=== PATIENT | female | born 1945 | race Caucasian/White ===

== ENCOUNTER 2024-08-25 15:35 | Inpatient (IN) | payer MEDICARE, SELFPAY ==
[2024-08-25] VITALS (22 sets, daily range): BP systolic 96–190; BP diastolic 51–93; PULSE 59–95; RESP 16–29; TEMP 36.9–37.1; O2SAT 92–97; BMI 32.3; BMI 33.6
--- NOTE | 2024-08-25 15:44 | XR_ITS ---
WS: [id number] XR chest 1V portable [id number] REASON FOR EXAM: chest pain FINDINGS: Moderate tortuosity and ectasia of the thoracic aorta. Mild cardiomegaly. Calcified granulomas disease bilaterally. No acute pulmonary parenchymal or pleural abnormality. Moderate degenerative spondylosis in the thoracic spine. Calcific left rotator cuff tendinosis. XR/XR chest 1V portable [id number] IMPRESSION: Mild cardiomegaly. No acute chest abnormality.
--- NOTE | 2024-08-25 15:44 | XR_ITS ---
WS: [id number] XR thoracic spine 3V* [id number] REASON FOR EXAM: back pain FINDINGS: No significant compression deformity or other focal vertebral body abnormality. Disc spaces minimally narrowed with mild to moderate vertebral body osteophytosis. XR/XR thoracic spine 3V* [id number] IMPRESSION: Mild to moderate degenerative spondylosis.
--- NOTE | 2024-08-25 15:45 | ED_ITS ---
Documented by User: SURYA Stoddard 08/26/24 09:12 HPI - Back Pain/Injury 2 General: Chief Complaint: Back Pain/Injury Stated Complaint: back pain Time Seen by Provider: 08/25/24 15:35 Source: patient and EMS Mode of arrival: EMS Limitations: no limitations History of Present Illness: Patient is a 78-year-old female presents to ED today via EMS for evaluation of back pain. She reportedly went to her primary care clinic for complaints of the back pain. They reportedly did an EKG and were concerned about a few areas of ST depression-no previous for comparisons. Patient states she is not having any chest pain. She states she has not been to the doctor since the . She tells me she has had lower neck/upper back pain between her shoulder blades for at least 6 months. 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 She states because of this she has a lot of neck and back pains with radiation into her arms. She states she recently changed chairs with different armrests and feels like made symptoms worse. She does not complain of a headache. No fevers. Again, back pain has been present intermittently over the past 6 months or so. Upon arrival to the emergency department today she states that most of her pain has abated and currently rating it at a 1/10. She was noted to be very hypertensive upon arrival. Patient states she does not check her blood pressure at home. Again she has not been to the doctor in many many years. MD elicited complaint: back pain Pertinent past history: prior back pain Onset (ago): month(s) Timing: intermittent Severity: mild Pain scale (0-10): 1 Similar Symptoms Previously: Yes Location: thoracic spine (lower neck/upper back) Radiation: other (bilateral arms) Exacerbating factors: other (certain movements and positions ) Associated symptoms: Deny abdominal pain, chills, dysuria, fatigue, fever(s) or syncope Work related injury: No Related Data Home Medications Medication Instructions Recorded Confirmed No Known Home Medications 08/26/24 08/26/24 Allergies Allergy/AdvReac Type Severity Reaction Status Date / Time Penicillins Allergy ALGY-Hives Verified 08/25/24 15:47 Review of Systems 2 Const: Denies: fever(s), chills, body aches, fatigue or malaise Eyes: Denies: change in vision, blurry vision, photophobia, floaters or seeing flashes Card: Denies: chest pain, palpitations, irregular heart rhythm, edema, swelling of feet/ankles, lightheadedness, syncope, pre-syncope, dyspnea on exertion, orthopnea, leg pain with exertion or acrocyanosis Resp: Denies: dyspnea, productive cough, non-productive cough, wheezing, stridor, pain on inspiration, change in phlegm color, hemoptysis or chest congestion GI: Denies: abdominal pain : Denies: flank pain or dysuria Musc: Reports: back pain; Denies: neck pain, extremity pain, extremity swelling, joint pain or joint swelling Skin/Breast: Denies: rash Neuro: Denies: headache(s), numbness in extremities, weakness in extremities or sensory changes Physical Exam 2 Const: COMMON NORMALS: no acute distress, average body habitus, patient oriented x3, no limitations, healthy appearing, alert and well nourished G ENERAL APPEARANCE: cooperative ORIENTATION/CONSCIOUSNESS: Yes awake, Yes oriented to person, Yes oriented to place and Yes oriented to time Eye: GENERAL EYE: appearance normal, both eyes and all related structures Neck/C-Spine: COMMON NORMALS: full ROM, no meningeal signs and no JVD G ENERAL: Yes normal visual inspection CERVICAL SPINE: Yes pain with cervical ROM, No Cervical spine tenderness, No step off deformity, Yes Paracervical muscle tenderness, No Paracervical spasm and No Trapezius muscle tenderness Chest: COMMONS NORMALS: normal inspection of the chest and normal palpation of entire chest wall Resp: COMMON NORMALS: normal respiratory effort and clear to auscultation bilaterally AUSCULTATION: clear to auscultation bilaterally Cardio: COMMON NORMALS: no JVD, regular rate and regular rhythm RATE: r egular rate RHYTHM: regular rhythm GI: COMMON NORMALS: Normal to inspection, nondistended, normoactive bowel sounds present, Soft to palpation and non-tender PALPATION: Yes Soft to palpation : COMMON NORMALS: Yes no CVA tenderness BLADDER/KIDNEY EXAM: Yes no CVA tenderness Back/Pelvis: COMMON NORMALS: no CVA tenderness, thoracic and lumbar spine normal to inspection, thoraco-lumbar ROM normal and straight leg raise negative bilaterally THORACIC SPINE/UPPER BACK: Yes paraspinal muscle tenderness L UMBAR SPINE/LOWER BACK: Yes normal to inspection, No lumbar spinal tenderness and No paraspinal muscle tenderness PELVIS: Yes buttocks normal Extremity: COMMON NORMALS: normal to inspection, full ROM, capillary refill normal, no joint enlargement, no clubbing, cyanosis or edema, no calf tenderness and no pedal edema GENERAL: Yes normal exam except as noted Neuro: YAEL COMA SCALE: document GCS findings Yael coma scale eye opening: Spontaneous Armstrong coma scale verbal response: Orientated Armstrong coma scale motor response: Obey commands Yael coma scale total score: 15 COMMON NORMALS: patient oriented x3, moves all extremities, no focal motor deficits, no sensory deficits noted and gait normal SENSORIUM/ORIENTATION: Yes alert, Yes oriented to person, Yes oriented to place and Yes oriented to time MENINGEAL SIGNS: Yes no meningeal signs Skin: COMMON NORMALS: no rashes or lesions noted GENERAL SKIN EXAM: no rashes or lesions noted Course 2 Vital Signs: Vital signs: Vital Signs Temperature 97.8 F 08/26/24 04:00 Pulse Rate 68 08/26/24 08:00 Respiratory Rate 26 H 08/26/24 08:00 Blood Pressure 128/66 08/26/24 08:00 Pulse Oximetry 95 08/26/24 08:00 Oxygen Delivery Me thod Room Air 08/26/24 06:00 MDM - Back Pain/Injury Labs 08/26/24 03:25 08/26/24 03:25 Radiology Impressions Chest X-Ray 08/25/24 15:44 IMPRESSION: Mild cardiomegaly. No acute chest abnormality. Thoracic Spine X-Ray 08/25/24 15:44 IMPRESSION: Mild to moderate degenerative spondylosis. Cervical Spine X-Ray 08/25/24 15:48 IMPRESSION: Mild changes of degenerative spondylosis as above. Bilateral calcified plaque carotid arteries. Chest CTA 08/25/24 17:26 IMPRESSION: 1. No evidence of pulmonary embolism. 2. No evidence of thoracic aortic aneurysm or dissection. 3. Stenosis of the left subclavian artery. Laboratory Results WBC 10.94 10^3/uL (3.29-11.43) 08/25/24 16:53 RBC 4.86 10^6/uL (3.85-5.65) 08/25/24 16:53 Hgb 15.70 g/dL (11.27-16.99) 08/25/24 16:53 Hct 47.5 % (36-47) H 08/25/24 16:53 MCV 97.7 fl (85-98) 08/25/24 16:53 MCH 32.3 pg (27-33) 08/25/24 16:53 MCHC 33.1 g/dL (30-55) 08/25/24 16:53 RDW 13.5 % (12.1-15.1) 08/25/24 16:53 Plt Count 261 10^3/cmm (157-399) 08/25/24 16:53 MPV 10.1 fL (7.4-10.4) 08/25/24 16:53 Neut % (Auto) 66.0 % 08/25/24 16:53 Lymph % (Auto) 26.5 % 08/25/24 16:53 [place] % (Auto) 6.4 % 08/25/24 16:53 Eos % (Auto) 0.4 % 08/25/24 16:53 Baso % (Auto) 0.5 % 08/25/24 16:53 Neut # (Auto) 7.22 10^3/uL (1.8-7.7) 08/25/24 16:53 Lymph # (Auto) 2.9 10^3/uL (0.8-4.8) 08/25/24 16:53 [place] # (Auto) 0.7 10^3/uL (0.2-0.9) 08/25/24 16:53 Eos # (Auto) 0.0 10^3/uL (0.0-0.8) 08/25/24 16:53 Baso # (Auto) 0.1 10^3/uL (0.0-0.1) 08/25/24 16:53 Nucleated RBC % (auto) 0 % 08/25/24 16:53 Nucleated RBCs # 0.0 /100WBC 08/25/24 16:53 Sodium 139 mmol/L (136-145) 08/25/24 16:53 Potassium 3.7 mmol/L (3.5-5.1) 08/25/24 16:53 Chloride 100 mmol/L (98-107) 08/25/24 16:53 Carbon Dioxide 24 mmol/L (22-29) 08/25/24 16:53 Anion Gap 18.7 (5-19) 08/25/24 16:53 BUN 12 mg/dL (8-23) 08/25/24 16:53 Creatinine 0.5 mg/dL (0.5-0.9) 08/25/24 16:53 GFR Calculation Not Reportable 08/25/24 16:53 Glucose 118 mg/dL (65-115) H 08/25/24 16:53 Calculated Osmolality 289 mOsm/kg (285-295) 08/25/24 16:53 Calcium 9.1 mg/dL (8.5-10.5) 08/25/24 16:53 Total Bilirubin 0.7 mg/dL (0.15-1.2) 08/25/24 16:53 AST 62 U/L (0-32) H 08/25/24 16:53 ALT 25 U/L (0-33) 08/25/24 16:53 Alkaline Phosphatase 80 U/L (35-105) 08/25/24 16:53 Troponin T Baseline 381 ng/L (0-10) H* 08/25/24 16:53 Troponin T 120 Minute 277.8 ng/L (0-10) H 08/25/24 19:32 Delta Troponin T -103.2 ABS# (0-10) L 08/25/24 19:32 Total Protein 7.4 g/dL (6.6-8.7) 08/25/24 16:53 Albumin 4.6 g/dL (3.5-5.2) 08/25/24 16:53 Globulin 2.8 g/dL (1.3-4.6) 08/25/24 16:53 Discharge Plan Discharge Patient Disposition: Admitted As Inpatient Admit Provider: Dacia Pimentel Clinical Impression: ST elevation ID (STEMI) Qualifiers: Involved coronary artery: unspecified coronary artery Qualified Code(s): I21.3 - ST elevation (STEMI) myocardial infarction of unspecified site Condition: Stable Sign Out Sign Out Data: Patient Sign Out occurred on 08/25/24 at 18:05. Patient's care was discussed, and care was transferred from SURYA Stoddard to SURYA Reese. Coding Level of Care Code ED Air Dispatcher for Chg Fwd Documented by User: Angelina Cheney MD 08/25/24 18:20 HPI - Back Pain/Injury 2 General: Chief Complaint: Back Pain/Injury Stated Complaint: back pain Time Seen by Provider: 08/25/24 15:35 Related Data Home Medications Medication Instructions Recorded Confirmed No Known Home Medications 08/26/24 08/26/24 Allergies Allergy/AdvReac Type Severity Reaction Status Date / Time Penicillins Allergy ALGY-Hives Verified 08/25/24 15:47 Physical Exam 2 Neuro: YAEL COMA SCALE: document GCS findings Yael coma scale total score: 15 Course 2 Vital Signs: Vital signs: Vital Signs Temperature 97.8 F 08/26/24 04:00 Pulse Rate 68 08/26/24 08:00 Respiratory Rate 26 H 08/26/24 08:00 Blood Pressure 128/66 08/26/24 08:00 Pulse Oximetry 95 08/26/24 08:00 Oxygen Delivery Mi thod Room Air 08/26/24 06:00 MDM - Back Pain/Injury Medical Decision Making Patient presents here with ST elevation ID. Patient originally is being seen by the midlevel she been having back pain her troponin was elevated they are doing a CT angio to rule out a dissection with her back pain hypertension her EKG was brought to me at 1802 I reviewed the initial EKG then showed no ST elevation this EKG showed ST elevation in 3 and aVF spoke to electron beam photo mask technician Dr. Pitts and activated Air Control Electronics Operator and spoke to patient she is not having any chest pain she complained of some back pain still we will give her heparin along with Plavix and aspirin her CT showed no signs of dissection patient is going to Air Control Electronics Operator Medical Records I reviewed the patient's medical records. Labs I reviewed the patient's lab results. 08/26/24 03:25 08/26/24 03:25 Radiology Impressions Chest X-Ray 08/25/24 15:44 IMPRESSION: Mild cardiomegaly. No acute chest abnormality. Thoracic Spine X-Ray 08/25/24 15:44 IMPRESSION: Mild to moderate degenerative spondylosis. Cervical Spine X-Ray 08/25/24 15:48 IMPRESSION: Mild changes of degenerative spondylosis as above. Bilateral calcified plaque carotid arteries. Chest CTA 08/25/24 17:26 IMPRESSION: 1. No evidence of pulmonary embolism. 2. No evidence of thoracic aortic aneurysm or dissection. 3. Stenosis of the left subclavian artery. Laboratory Results WBC 10.94 10^3/uL (3.29-11.43) 08/25/24 16:53 RBC 4.86 10^6/uL (3.85-5.65) 08/25/24 16:53 Hgb 15.70 g/dL (11.27-16.99) 08/25/24 16:53 Hct 47.5 % (36-47) H 08/25/24 16:53 MCV 97.7 fl (85-98) 08/25/24 16:53 MCH 32.3 pg (27-33) 08/25/24 16:53 MCHC 33.1 g/dL (30-55) 08/25/24 16:53 RDW 13.5 % (12.1-15.1) 08/25/24 16:53 Plt Count 261 10^3/cmm (157-399) 08/25/24 16:53 MPV 10.1 fL (7.4-10.4) 08/25/24 16:53 Neut % (Auto) 66.0 % 08/25/24 16:53 Lymph % (Auto) 26.5 % 08/25/24 16:53 [place] % (Auto) 6.4 % 08/25/24 16:53 Eos % (Auto) 0.4 % 08/25/24 16:53 Baso % (Auto) 0.5 % 08/25/24 16:53 Neut # (Auto) 7.22 10^3/uL (1.8-7.7) 08/25/24 16:53 Lymph # (Auto) 2.9 10^3/uL (0.8-4.8) 08/25/24 16:53 [place] # (Auto) 0.7 10^3/uL (0.2-0.9) 08/25/24 16:53 Eos # (Auto) 0.0 10^3/uL (0.0-0.8) 08/25/24 16:53 Baso # (Auto) 0.1 10^3/uL (0.0-0.1) 08/25/24 16:53 Nucleated RBC % (auto) 0 % 08/25/24 16:53 Nucleated RBCs # 0.0 /100WBC 08/25/24 16:53 Sodium 139 mmol/L (136-145) 08/25/24 16:53 Potassium 3.7 mmol/L (3.5-5.1) 08/25/24 16:53 Chloride 100 mmol/L (98-107) 08/25/24 16:53 Carbon Dioxide 24 mmol/L (22-29) 08/25/24 16:53 Anion Gap 18.7 (5-19) 08/25/24 16:53 BUN 12 mg/dL (8-23) 08/25/24 16:53 Creatinine 0.5 mg/dL (0.5-0.9) 08/25/24 16:53 GFR Calculation Not Reportable 08/25/24 16:53 Glucose 118 mg/dL (65-115) H 08/25/24 16:53 Calculated Osmolality 289 mOsm/kg (285-295) 08/25/24 16:53 Calcium 9.1 mg/dL (8.5-10.5) 08/25/24 16:53 Total Bilirubin 0.7 mg/dL (0.15-1.2) 08/25/24 16:53 AST 62 U/L (0-32) H 08/25/24 16:53 ALT 25 U/L (0-33) 08/25/24 16:53 Alkaline Phosphatase 80 U/L (35-105) 08/25/24 16:53 Troponin T Baseline 381 ng/L (0-10) H* 08/25/24 16:53 Troponin T 120 Minute 277.8 ng/L (0-10) H 08/25/24 19:32 Delta Troponin T -103.2 ABS# (0-10) L 08/25/24 19:32 Total Protein 7.4 g/dL (6.6-8.7) 08/25/24 16:53 Albumin 4.6 g/dL (3.5-5.2) 08/25/24 16:53 Globulin 2.8 g/dL (1.3-4.6) 08/25/24 16:53 All radiology interpretation(s) finalized by discharge EKG Data EKG 2: I personally reviewed and interpreted this EKG as follows: EKG interpretation date: 08/25/24 EKG interpretation time: 18:02 Interpretation: st elevation III, AVF stemi qrs 100 qtc 445 nsr hr 90 Discharge Plan Discharge Patient Disposition: Admitted As Inpatient Admit Provider: Dacia Pimentel Clinical Impression: ST elevation ID (STEMI) Qualifiers: Involved coronary artery: unspecified coronary artery Qualified Code(s): I21.3 - ST elevation (STEMI) myocardial infarction of unspecified site Condition: Stable Sign Out Sign Out Data: Patient Sign Out occurred on 08/25/24 at 18:05. Patient's care was discussed, and care was transferred from SURYA Stoddard to SURYA Reese. Coding Level of Care Code ED Air Dispatcher for Josephine Tubbs
--- NOTE | 2024-08-25 15:48 | XR_ITS ---
WS: [id number] XR cervical spine 3V* [id number] REASON FOR EXAM: neck pain FINDINGS: Calcified plaque in both carotid arteries. Normal cervical spine curvature. No abnormality of the odontoid. Normal vertebral bodies. Mild narrowing of the intervertebral disc space C6-C7. 1 to 2 mm of degenerative anterolisthesis Of C5 on C6 and C6 on C7. XR/XR cervical spine 3V* [id number] IMPRESSION: Mild changes of degenerative spondylosis as above. Bilateral calcified plaque carotid arteries.
--- NOTE | 2024-08-25 15:55 | ECG_ITS ---
[facility] Test Date: 2024-08-25 Pat Name: Brianne Parkinson Department: Room: Gender: Female Personal Attendant: : 1945 Requested By: Angelique Peters Order Number: [id number] Reading MD: KIMO CRUMP Measurements Intervals [place] Rate: 79 P: 58 IN: 189 QRS: 30 QRSD: 92 T: -58 QT: 392 QTc: 451 Interpretive Statements SINUS RHYTHM ST DEVIATION AND MODERATE T-WAVE ABNORMALITY, CONSIDER INFERIOR ISCHEMIA [-0.1+ mV T-WAVE IN II/aVF] No previous ECG available for comparison Electronically Signed On 08-29-2024 00:22:09 LANDCARE FACILITATOR by KIMO CRUMP [email or web address]
[2024-08-25] MEDS: hyDRALAzine 20 mg/mL INJ 1 mL 10 MG IVP (16:56)
[2024-08-25 16:59] LABS: Basophils # 0.1 10^3/uL (0.0-0.1); Basophils % 0.5 %; Eosinophils % 0.4 %; Hematocrit 47.5 % (36-47); Lymphocytes # 2.9 10^3/uL (0.8-4.8); Lymphocytes % 26.5 %; Mean Corpuscular HGB Conc 33.1 g/dL (30-55); Mean Corpuscular Hemoglobin 32.3 pg (27-33); Mean Corpuscular Volume 97.7 fl (85-98); Mean Platelet Volume 10.1 fL (7.4-10.4); Monocytes # 0.7 10^3/uL (0.2-0.9); Monocytes % 6.4 %; Neutrophils # 7.22 10^3/uL (1.8-7.7); Nucleated Red Blood Cells % 0 %; Platelet Count 261 10^3/cmm (157-399); Red Blood Count 4.86 10^6/uL (3.85-5.65); Red Cell Distribution Width 13.5 % (12.1-15.1); White Blood Count 10.94 10^3/uL (3.29-11.43)
[2024-08-25 17:23] LABS: Troponin(5th) Baseline 381 ng/L (0-10)
[2024-08-25 17:24] LABS: Alanine Aminotransferase 25 U/L (0-33); Albumin Level 4.6 g/dL (3.5-5.2); Alkaline Phosphatase 80 U/L (35-105); Aspartate Amino Transferase 62 U/L (0-32); Blood Urea Nitrogen 12 mg/dL (8-23); Calcium 9.1 mg/dL (8.5-10.5); Carbon Dioxide 24 mmol/L (22-29); Chloride 100 mmol/L (98-107); Creatinine Clr Calc Pharmacy 67.4721; Globulin 2.8 g/dL (1.3-4.6); Glucose 118 mg/dL (65-115); Osmolality Calculated 289 mOsm/kg (285-295); Sodium 139 mmol/L (136-145); Total Bilirubin 0.7 mg/dL (0.15-1.2); Total Protein 7.4 g/dL (6.6-8.7)
--- NOTE | 2024-08-25 17:26 | CTR_ITS ---
PROCEDURE INFORMATION: Exam: CTA Chest With Contrast Exam date and time: 08/25/2024 6:36 PM Age: 78 years old Clinical indication: Patient HX: Back pain since last summer per PT; Additional info: Upper back pain/elevated trop TECHNIQUE: Imaging protocol: Computed tomographic angiography of the chest with contrast. Exam focused on the arteries. 3D rendering (Not supervised by radiologist): MIP and/or 3D reconstructed images were created by the technologist. Radiation optimization: All CT scans at this facility use at least one of these dose optimization techniques: automated exposure control; mA and/or kV adjustment per patient size (includes targeted exams where dose is matched to clinical indication); or iterative reconstruction. Contrast material: OMNIPAQUE 350; Contrast volume: 100 ml; Contrast route: INTRAVENOUS (IV); COMPARISON: CR XR chest 1V portable [id number] 08/25/2024 4:01 PM RADIATION DOSE METRICS: Total DLP (mGy-cm): 820.04 FINDINGS: Pulmonary arteries: There is no evidence of filling defects within the pulmonary arterial circulation to suggest pulmonary embolism. Great vessels off aortic arch: There is focal stenosis in the proximal left subclavian artery of approximately 60%. Aorta: There is some minimal atherosclerotic calcification of the descending thoracic aorta. There is no thoracic aortic aneurysm or dissection. Lungs: There is mild subsegmental atelectasis at the lung bases. No acute pulmonary infiltrate is identified. Pleural spaces: Unremarkable. No pneumothorax. No pleural effusion. Heart: Heart is within normal limits of size. Coronary arteries: There is severe atherosclerotic calcification of the coronary arteries. Lymph nodes: There are small mediastinal lymph nodes but no adenopathy. Bones/joints: There is no evidence of acute fracture. Soft tissues: Unremarkable. CT/CT angio chest PE protcl [id number] IMPRESSION: 1. No evidence of pulmonary embolism. 2. No evidence of thoracic aortic aneurysm or dissection. 3. Stenosis of the left subclavian artery.
[2024-08-25 17:28] LABS: Anion Gap 18.7 (5-19); Potassium 3.7 mmol/L (3.5-5.1)
[2024-08-25] MEDS: iohexol 350 mg/mL 500 mL Btl (per mL) IV (17:43)
--- NOTE | 2024-08-25 17:53 | ECG_ITS ---
[facility] Test Date: 2024-08-25 Pat Name: Kimmie Parkinson Department: Room: Gender: Female Apprentice Painter Brush: : 1945 Requested By: Angelique Peters Order Number: [id number] Ezequiel MD: KIMO CRUMP Measurements Intervals [place] Rate: 90 P: 142 WI: 186 QRS: 101 QRSD: 100 T: 154 QT: 398 QTc: 488 Interpretive Statements ECTOPIC ATRIAL RHYTHM RIGHT AXIS DEVIATION [QRS AXIS > 100] NONSPECIFIC ST & T-WAVE ABNORMALITY Compared to ECG 08/25/2024 15:55:15 Ectopic atrial rhythm now present Right-axis deviation now present Sinus rhythm no longer present Possible ischemia no longer present T-wave abnormality still present Electronically Signed On 08-29-2024 00:41:05 DIRECTOR PHARMACEUTICAL by KIMO CRUMP [email or web address]
--- NOTE | 2024-08-25 18:05 | XACV_ITS ---
Ht: 150 cm Wt: 73 kg BSA: 1.77 m2 Gender: Female : 1945 Any Known Allergies: Penicillins Exam Priority: Routine Procedure(s): Procedure Description: Diagnostic procedure Procedure Description: Left Heart Catheterization Procedure Description: Left ventriculography Procedure Description: Miscellaneous Procedure Description: ACT Procedure Description: Coronary Angiography Diagnostic Cath Status: Emergency Diagnostic Findings * Left Main: obstructive 70% stenosis, BRIANNA: 3 flow. * Mid Left Anterior Descending to Distal Left Anterior Descending: minimal 30% stenosis, BRIANNA: 3 flow. * Distal Left Anterior Descending to 3rd Right posterolateral collaterallization. * Mid Right Coronary Artery: total occlusion, BRIANNA: 0 flow. * Proximal Circumflex: severe 90% stenosis, BRIANNA: 3 flow. * Distal Circumflex: significant 80% stenosis, BRIANNA: 3 flow. * 1st Diagonal: moderate 50% stenosis, BRIANNA: 3 flow. * Coronary angiography shows right dominance. Conclusions 1. There is total occlusion coronary artery disease with four vessel disease. 2. Normal left ventricular systolic function. Ejection fraction of 60%. Recommendations * 1-Return to ICU for close monitoring 2-Continue IV heparin drip as per ACS protocol 3-Hold Plavix for possible CABG 4-Statin with LDL goal of 70 mg/dl, aspirin 81 mg p.o. daily for life long 5-CT surgery consults for CABG 6-Optimal medical management for MA 7-Follow up with Dr. Pimentel in four weeks and establish care with primary care physician. Diagnostic RX Recommendation: CABG LV EDP: 37 mmHg Ventriculography Ejection Fraction: 60.0 % Left Ventriculography Findings: * Normal left ventricle ejection fraction, inferior wall severe hypokinesis. Pressures Phase:Rest AO : 175 / 83 ( 120 ) @ 2:32:59 PM 121 / 60 ( 83 ) @ 2:32:59 PM 156 / 76 ( 107 ) @ 2:32:59 PM 157 / 74 ( 104 ) @ 2:32:59 PM LV : 170 / 3 / 37 @ 2:32:59 PM 169 / 1 / 34 @ 2:32:59 PM 171 / 2 / 37 @ 2:32:59 PM Valves Phase:DefaultPhase AV : 15.0 @ 7:32:59 PM AV Mean Gradient: 11.0 @ 7:32:59 PM Clinical Evaluation EBL: 5mL-10mL Procedural Details Pre-Procedure Time Out. Identified patient by full name and date of as verbalized by the patient/guarantor. Does the consent match the physician's order: N/A Emergent. Accurate & Complete Informed Consent: N/A Emergent. Inpatient/Outpatient History & Physical on Chart: N/A Emergent. If H&P is completed, is and addenduem needed: N/A Emergent; If yes, is the addendum complete: N/A Emergent. Visualize and Verify Site with Patient/Guarantor: N/A. Relevant Radiology Images available: N/A Emergent. Pre-op teaching completed and patient verbalized understanding. The risks, benefits, and alternatives of sedation and/or procedure were discussed by physician. The patient agrees to continue. Procedure started. Chest Pain Symptom Assessment: Atypical Angina. Cell Inspector Indications: ACS <= 24 hours. [facility] Clinical Fraility Score: 4: Vulnerable. Cardiovascular Instability: No. Correct patient, site and procedure confirmed by cath team. PERRLA. Strong, equal hand animal assisted therapist bilaterally. Lungs clear x 5 lobes. IV Site on Arrival: 20 gauge in the left forearm. IV Fluids: 0.9% NaCl at KVO. 0 mL infused prior to labor and employment paralegal. Oxygen started at 2liters/min via nasal canula. right groin was prepped with chloroprep then draped in the usual sterile fashion. right radial was prepped with chloroprep then draped in the usual sterile fashion. Baseline sample Acquired. HR: 89 BPM. Physician arrived. Physician scrubbed in. Immediate Pre-Procedure Time Out. Correct Patient: Yes; Correct Procedure: Yes; Correct Site: Yes; Correct Patient Position: Yes; Correct Supplies: Yes; Dried Flammable Prep: Yes; Blood Products Available: N/A;. Lidocaine 1% infiltrated to the right radial. Arterial access obtained. ACT drawn. Results 186 seconds. Therapeutic limits - pre-heparin administration 90-150 seconds and monitoring heparin during a vascular procedure >250 seconds. A 5 [place] TIG catheter in over wire. Multiple views taken of right coronary artery. Delay to labor and employment paralegal arrival due to pt using restroom. Catheter redirected to the LCA. Multiple views taken of left coronary artery. Catheter removed over the exchange wire. Inventory is CRD 6FR XB 3 GUIDE. Equipment: 6F - Radial. Cardiac Cath Pack. ACSiO2 Nanotech Manifold Kit Model BT 2000. Heparinized Saline (2 units/mL), 1000 mL bag. 6 [place] XB 3 guide catheter was inserted over the wire. Guide catheter out. A 5 [place] Angled Pig catheter in over wire. EDP Sample taken: LV 170/3,37; HR: 87 BPM; SpO2: 92%. Hand injection LV gram. EDP Sample taken: LV 169/1,34; HR: 89 BPM; SpO2: 93%. Pullback taken: LV 171/2,37; AO 156/76(107); Mean: 11mmHg, Peak to Peak: 15mmHg, SEP: 24sec/min; HR: 85 BPM; SpO2: 94%. Catheter removed over the exchange wire. Physician scrubbed out. TR band placed. Hemostasis obtained. A TR Band was successful obtaining hemostatsis at the Right Radial artery insertion site. Post Procedure: Pulses reassessed and unchanged. PERRLA. Strong, equal hand animal assisted therapist bilaterally. No VTE prophylaxis required. Medication's Wasted: Lidocaine 1% = 18 mL. Total IV fluids: 40 mL. Medication's Wasted: Heparin = 1000 units. Medication's Wasted: Other = fentanyl 25mcg. Contrast type used: Omnipaque 300 mgI/mL, 500 mL bottle. Post-op diagnosis: multi vessel CAD require surgical intervntion. Complications: none. Estimated blood loss: 5mL-10mL. Responsiveness - Normal response to verbal stimuli; alert and oriented, PERRLA. Airway - Unaffected, no intervention required; spontaneous ventilation. Circulation: W/N/L, pulses unchanged. Nausea/Vomiting: No. Procedure completed. Patient transferred by wheelchair to ICU. Vital chart was stopped. Access Site Site: Right Radial artery Sheath Size: 6 Fr Hemostasis Method: TR Band Hemostasis Success: Successful Procedure Medications Start: 6:45 PM Stop: 6:45 PM Medication: Versed Amount: 1 mg Route: I.V. Start: 6:45 PM Stop: 6:45 PM Medication: Fentanyl Amount: 25 mcg Route: I.V. Start: 6:50 PM Stop: 6:50 PM Medication: Nitrogylcerin Amount: 200 mcg Route: I.A. Start: 6:55 PM Stop: 6:55 PM Medication: Fentanyl Amount: 25 mcg Route: I.V. Start: 7:01 PM Stop: 7:01 PM Medication: Heparin Amount: 5000 units Route: I.V. Start: 7:02 PM Stop: 7:02 PM Medication: Versed Amount: 1 mg Route: I.V. Start: 7:10 PM Stop: 7:10 PM Medication: Fentanyl Amount: 25 mcg Route: I.V. I, the attending physician, have reviewed and verified all procedure medications. Yes, all medications given per verbal order History/Risk Factors Hypertension: No Dyslipidemia: No Peripheral Arterial Disease (PAD): No Myocardial Infarction (MA): No Obesity: No Renal Disease: No Prior Interventions PCI: No CABG: No Valve Surgery: No Report Signatures Finalized by Dacia Pimentel MD on 08/25/2024 08:19 PM
[2024-08-25] MEDS: heparin 5,000 unit/mL INJ 1 mL 4000 UNIT IVP (18:15)
[2024-08-25] MEDS: aspirin 81 mg Chew Tablet 324 MG PO (18:16)
[2024-08-25] MEDS: clopidogrel 300 mg Tablet 600 MG PO (18:17)
--- NOTE | 2024-08-25 18:38 | PM.HP ---
Providers/Chief Complaint Admitting Physician: Dacia Pimentel MD Chief Complaint: back pain History of Present Illness Kimmie Parkinson is a 78 year old female who came to the ER with back pain radiating to both shoulders initial EKG performed on 08/25/2024 at 1555 was not concerning for ischemia, patient underwent x-ray of the neck back and CTA of the chest which rule out dissection and other etiologies for back pain, second EKG performed on August 25, 2024 at 1753 was concerning for abnormality, around 6:02 PM I was texted with twelve-leads EKG from the ER which was concerned for ongoing ischemia, it was suggestive of inferior leads 3, avf randy ST elevation and high lateral lead ( 1&Avl ST depressions) along with V2 suggestive of injury/ST elevation LA. aded with clopidogrel aspirin and given IV heparin. STEMI pager was alerted, patient was loaded with 600 mg of Plavix aspirin statin and given IV heparin. She was taken to the Facilities Management Executive, she was noted to have significant eccentric 70% distal left main, proximal high-grade 90% circumflex and ostial significant 80% OM2, LAD has diffuse luminal irregularities, diagonal 1 has 50% proximal stenosis, RCA is 100% occluded in the middle with [id number] collaterals. Left ventricular end-diastolic pressure was moderately elevated at 37 mmHg, left ventricular ejection fraction appeared to be normal 60% with inferior wall severe hypokinesis, there was no aortic valve gradient. Given history of multivessel coronary artery disease and because of the fact after giving nitroglycerin ST elevation and reciprocal EKG changes improved plus patient was hemodynamically stable we decided to refer patient for CABG. Medications/Allergies Allergies Allergy/AdvReac Type Severity Reaction Status Date / Time Penicillins Allergy ALGY-Hives Verified 08/25/24 15:47 Vitals/I&O/Wt Last Vital Signs Temp 98.4 F 08/25/24 15:39 Pulse 95 08/25/24 18:22 Resp 23 H 08/25/24 18:22 BP 159/78 08/25/24 18:22 Pulse Ox 96 08/25/24 18:22 O2 Del Method Room Air 08/25/24 18:22 Weight last 48 hrs Weight 160 lb Physical Exam Const: OTHER: GENERAL: Patient is alert, awake and oriented x3. Mildly distressed NECK: No jugular vein distension. HEENT: No cyanosis. No icterus. No pallor. HEART: Regular S1 and S2. No murmur, rub or gallop. LUNGS: Decreased breath sounds bilaterally. ABDOMEN: Soft, nontender and nondistended. Positive bowel sounds. No guarding, rebound or tenderness. CENTRAL NERVOUS SYSTEM: Grossly nonfocal. EXTREMITIES: Lower extremities with out edema bilaterally. Data 08/25/24 16:53 08/25/24 16:53 A&P Assessment and plan (1) Acute coronary syndrome: Given history of multivessel coronary artery disease including distal left main and because of the fact patient remains hemodynamically stable, we will refer patient for CABG, since we do not have CABG facility at our hospital. Continue heparin and IV nitro drip currently patient is chest pain-free. Continue aspirin and statin add beta-noemi metoprolol 12.5 mg tartrate p.o. twice daily. Echocardiogram will be obtained in the morning. By LV gram patient ejection fraction was 60% with inferior wall hypokinesis, LVEDP was 37 mmHg therefore we are planning to diurese the patient. Patient referral was discussed with Dr. Adarsh Ross who graciously accepted the patient for the transfer. We will await the bed. (2) Essential hypertension: Add beta-noemi, patient will be on nitro drip. (3) Hyperlipidemia LDL goal <70: Continue statin. Attestations Medical Necessity Statement*: I am expecting her stay to cross more than 2 midnights. Patient is admitted for acute coronary syndrome/STEMI. She has multivessel coronary artery disease awaiting bed in [facility] for coronary artery bypass surgery. Coding Level of Care Code Acute Code for [facility] Diagnoses Acute coronary syndrome I24.9 Essential hypertension I10 Hyperlipidemia LDL goal <70 E78.5
--- NOTE | 2024-08-25 20:23 | USCV_ITS ---
[facility] Age: 78 Gender: F : 1945 Exam Date: 08/25/2024 20:48 Ordering Phys: Dacia Pimentel MD ([email or web address]) Technologist: MJ Exam Location: [facility] [place] Indication: acute coronary syndrome, s/p cardiac catheterization. BP: 177 / 91 HR: 57 Rhythm: Sinus Technical Quality: Adequate MEASUREMENTS (Male / Female) Normal Values 2D ECHO LV Diastolic Diameter PLAX 3.2 cm 4.2 - 5.9 / 3.9 - 5.3 cm IVS Diastolic Thickness 1.3 cm 0.6 - 1.0 / 0.6 - 0.9 cm IVS Systolic Thickness 2.0 cm LVPW Diastolic Thickness 1.4 cm 0.6 - 1.0 / 0.6 - 0.9 cm LVPW Systolic Thickness 2.1 cm LVOT Diameter 2.1 cm LV Ejection Fraction 2D Teich 63.7 % LV Ejection Fraction MOD 4C 57.6 % LV Ejection Fraction MOD 2C 65.3 % LV Ejection Fraction 2C AL 68.0 % LA Diameter 3.7 cm Aorta at Sinotubular Diameter 2.3 cm IVC Diameter 0.9 cm M-MODE LA Ao Ratio MM 1.4 AV Cusp Separation MM 1.4 cm DOPPLER AV Peak Velocity 140.0 cm/s LVOT Peak Velocity 78.0 cm/s AV Area Cont Eq vti 2.7 cm squared AV Area Cont Eq pk 2.0 cm squared MV Peak Velocity 123.0 cm/s MV Area PHT 3.0 cm squared Mitral E to A Ratio 0.8 PV Peak Velocity 93.0 cm/s FINDINGS Left Ventricle Normal left ventricular size, systolic function and wall thickness, with no regional wall motion abnormalities. Left ventricular ejection fraction is estimated at 60 %. Grade I/IV diastolic dysfunction (abnormal relaxation filling pattern), normal to mildly elevated filling pressures. Right Ventricle The right ventricle is normal in size and function. Right Atrium The right atrium is normal in size. Left Atrium The left atrium is normal in size. Mitral Valve Moderately thickened mitral valve. Moderate mitral annular calcification. No mitral valve stenosis. Mild mitral valve regurgitation. Aortic Valve Moderate aortic valve calcification. Mild aortic valve stenosis, mean gradient 3.4 mmHg, JUNG 2.7 cm squared. Trace aortic valve regurgitation. Tricuspid Valve Structurally normal tricuspid valve without significant stenosis or regurgitation. Pulmonary artery systolic pressure is normal. Pulmonic Valve Structurally normal pulmonic valve without significant stenosis. There is no pulmonic regurgitation. Pericardium Normal pericardium without effusion. Aorta Normal ascending aorta dimension. IVC The inferior vena cava appears normal. CONCLUSIONS Normal left ventricular size, systolic function and wall thickness, with no regional wall motion abnormalities. Left ventricular ejection fraction is estimated at 60 %. Grade I/IV diastolic dysfunction (abnormal relaxation filling pattern), normal to mildly elevated filling pressures. Moderately thickened mitral valve. Moderate mitral annular calcification. No mitral valve stenosis. Mild mitral valve regurgitation. Moderate aortic valve calcification. Mild aortic valve stenosis, mean gradient 3.4 mmHg, JUNG 2.7 cm squared. Trace aortic valve regurgitation. There is no pericardial effusion. Right atrial pressure is around 5 mm of mercury. Dacia Pimentel MD (Electronically Signed) Final Date: 26 August 2024 20:40 S
[2024-08-25 20:43] LABS: Troponin 5 2HR 277.8 ng/L (0-10); Troponin 5 2HR Delta -103.2 ABS# (0-10)
[2024-08-25] MEDS: atorvastatin 40 mg Tablet PO (20:43)
[2024-08-25] MEDS: metoprolol tartrate 25 mg Tablet 12.5 MG PO (20:43)
[2024-08-25] MEDS: FUROsemide 10 mg/mL SDV 4mL 40 MG IVP (20:44)
[2024-08-25] MEDS: potassium chloride ER 20 mEq Tablet PO (20:44)
[2024-08-25] MEDS: nitroglycerin drip 50 MG/250 ML PREMIX IV (20:44)
--- NOTE | 2024-08-25 21:44 | ECG_ITS ---
[employer] Test Date: 2024-08-25 Pat Name: Kimmie Parkinson Department: Room: ICU02 Gender: Female Qc Chemist: : 1945 Requested By: Angelique Peters Order Number: [id number] Ezequiel MD: KIMO CRUMP Measurements Intervals [place] Rate: 61 P: 69 NM: 191 QRS: 44 QRSD: 93 T: 78 QT: 445 QTc: 450 Interpretive Statements SINUS RHYTHM POSSIBLE INFERIOR MYOCARDIAL INFARCTION , PROBABLY OLD [30 ms Q WAVE IN II/aVF] Compared to ECG 08/25/2024 17:53:50 Myocardial infarct finding now present Ectopic atrial rhythm no longer present Right-axis deviation no longer present T-wave abnormality no longer present Electronically Signed On 08-29-2024 00:40:49 FACTORY HELPER by KIMO CRUMP [email or web address]
[2024-08-25] MEDS: morphine 4 mg/mL SDV 1 mL 2 MG IVP (21:49)
[2024-08-25] MEDS: temazepam 15 mg Capsule PO (21:50)
[2024-08-26] VITALS (42 sets, daily range): BP systolic 106–142; BP diastolic 58–84; PULSE 60–94; RESP 15–33; TEMP 36.6; O2SAT 91–97
--- NOTE | 2024-08-26 00:06 | PC.NURSE ---
TR band: Bleeding noted with 2mls air remaining in TR band. Added 12mls air for a total of 14mls. Will reassess in 15 minutes, if no bleeding will wait 1 hour before removing any additional air from band.
--- NOTE | 2024-08-26 03:08 | PC.NURSE ---
TR band removed at 0300. Dressing [address] dry and intact.
[2024-08-26 04:04] LABS: Basophils % 0.3 %; Hematocrit 44.1 % (36-47); Lymphocytes # 1.3 10^3/uL (0.8-4.8); Lymphocytes % 12.1 %; Mean Corpuscular HGB Conc 33.1 g/dL (30-55); Mean Corpuscular Volume 96.7 fl (85-98); Mean Platelet Volume 10.5 fL (7.4-10.4); Monocytes # 0.8 10^3/uL (0.2-0.9); Neutrophils # 8.58 10^3/uL (1.8-7.7); Neutrophils % 80.3 %; Nucleated Red Blood Cells % 0 %; Platelet Count 259 10^3/cmm (157-399); Red Blood Count 4.56 10^6/uL (3.85-5.65); Red Cell Distribution Width 13.8 % (12.1-15.1); White Blood Count 10.68 10^3/uL (3.29-11.43)
[2024-08-26 04:21] LABS: Anion Gap 17.3 (5-19); Blood Urea Nitrogen 14 mg/dL (8-23); Calcium 8.8 mg/dL (8.5-10.5); Carbon Dioxide 25 mmol/L (22-29); Chloride 100 mmol/L (98-107); Creatinine Clr Calc Pharmacy 70.1914; Glucose 139 mg/dL (65-115); Osmolality Calculated 289 mOsm/kg (285-295); Potassium 4.3 mmol/L (3.5-5.1); Sodium 138 mmol/L (136-145)
[2024-08-26 06:20] LABS: Partial Thromboplastin Time 28.6 SECONDS (23.9-36.7)
[2024-08-26] MEDS: heparin 5,000 unit/mL INJ 1 mL IVP (06:49)
[2024-08-26] MEDS: heparin drip 25,000 UNIT/500 ML PREMIX 21 UNIT IV (06:52)
[2024-08-26] MEDS: metoprolol tartrate 25 mg Tablet 12.5 MG PO (08:14)
--- NOTE | 2024-08-26 11:27 | P.PN_ITS ---
Subjective 2 Subjective: Patient is a very pleasant 78-year-old female who came in last night for an acute STEMI. Taken to the Speed Runner and was found to have significant eccentric 70% distal left main, proximal high-grade 90% circumflex and ostial significant 80% OM2, LAD has diffuse luminal irregularities, diagonal 1 has 50% proximal stenosis, RCA is 100% occluded in the middle with [id number] collaterals. Left ventricular end-diastolic pressure was moderately elevated at 37 mmHg, left ventricular ejection fraction appeared to be normal 60% with inferior wall severe hypokinesis, there was no aortic valve gradient. Today patient's vital signs are stable. No active chest pain at this time. Nitro drip on hold at this time due to hypotension. Otherwise, patient is comfortable without complaint. Medications: Reviewed: Yes Vitals/I&O/Wt Last Vital Signs Temp 97.8 F 08/26/24 04:00 Pulse 68 08/26/24 10:00 Resp 21 H 08/26/24 10:00 BP 120/71 08/26/24 10:00 Pulse Ox 95 08/26/24 10:00 O2 Del Method Room Air 08/26/24 06:00 08/25/24 08/26/24 08/26/24 22:59 06:59 14:59 Intake Total 61.975 / 61.975 0 / 61.975 246.275 / 246.275 Output Total 400 / 400 Balance -338.025 / -338.025 0 / -338.025 246.275 / 246.275 Weight last 48 hrs Weight 164 lb 3.91 oz Weight 166 lb 7.184 oz Weight 160 lb Physical Exam 2 Narrative: General: No apparent distress, healthy appearing, well nourished HENMT: normoceophalic Muskuloskeletal: Full ROM Lymphatic: no lymphedema noted Respiratory: Normal respiratory effort, fine crakcles bilateral lower lobes, no use of accessory muscles Cardio: No JVD, regular rate, regular rhythm, S1 S2 normal, no murmurs, peripheral pulses 2+ throughout Extremities: Full ROM, normal, normal capillary refill, no cyanosis or edema Neuro: Alert and oriented x4, no focal motor deficits Psych: Affect normal, denies suicidal ideation, mental status grossly normal Skin: cath puncture site to right groin clean dry intact no s/s of hematoma Data 08/26/24 03:25 08/26/24 03:25 A&P Assessment and plan (1) Acute coronary syndrome: Given history of multivessel coronary artery disease including distal left main and because of the fact patient remains hemodynamically stable, we will refer patient for CABG, since we do not have CABG facility at our hospital. Continue heparin drip and continue IV nitro drip if bp allows and patient has chest pain. Currently patient is chest pain-free. Continue aspirin and statin add beta- noemi metoprolol 12.5 mg tartrate p.o. twice daily. Echocardiogram has been ordered. Will se results. By LV gram patient ejection fraction was 60% with inferior wall hypokinesis, LVEDP was 37 mmHg therefore we are planning to diurese the patient with 40 lasix IV. Patient had a good response to initial lasix last night. Patient referral was discussed with Dr. Adarsh Ross by Dr. Pimentel who graciously accepted the patient for the transfer. We will await the bed. (2) Essential hypertension: Continue beta-noemi. (3) Hyperlipidemia LDL goal <70: Continue statin. Plan Plan is to tranfer patient to CV surgeon as soon as bed is available. Continue to monitor. Continue current medical therapy. Will give lasix 40 IV with potassium 20 meq. Recheck labs in the AM and observe response. Attestations 2 Medical Necessity Statement*: Due to patient's recent STEMI with multivessel coronary artery disease and unstable angina patient stay is expected to cross 2 midnights. Coding Level of Care Code Acute Code for [facility] Diagnoses Acute coronary syndrome I24.9 Essential hypertension I10 Hyperlipidemia LDL goal <70 E78.5
[2024-08-26] MEDS: FUROsemide 10 mg/mL SDV 4mL 40 MG IVP (11:47)
[2024-08-26] MEDS: aspirin 81 mg EC Tablet PO (11:47)
[2024-08-26] MEDS: potassium chloride ER 20 mEq Tablet PO (11:48)
[2024-08-26 15:08] LABS: Partial Thromboplastin Time 89.6 SECONDS (23.9-36.7)
--- NOTE | 2024-08-26 17:30 | P.DS_ITS ---
Discharge Providers Date of Admission: 08/25/24 20:22 Date of Discharge: 08/26/24 Attending Provider at Admission: Dacia Pimentel MD Attending Provider at Discharge: Dacia Pimentel MD Diagnoses at Discharge Discharge Diagnosis (1) Acute coronary syndrome: Status: Acute (2) Essential hypertension: Status: Acute (3) Hyperlipidemia LDL goal <70: Status: Acute Reason for Visit Reason for Visit: back pain Brief History: Kimmie Parkinson is a 78 year old female who came to the ER with back pain radiating to both shoulders initial EKG performed on 08/25/2024 at 1555 was not concerning for ischemia, patient underwent x-ray of the neck back and CTA of the chest which rule out dissection and other etiologies for back pain, second EKG performed on August 25, 2024 at 1753 was concerning for abnormality, around 6:[address] Pimentel was notified with twelve-leads EKG from the ER which was concerned for ongoing ischemia, it was suggestive of inferior leads 3, avf randy ST elevation and high lateral lead ( 1&Avl ST depressions) along with V2 suggestive of injury/ST elevation [place]. Hospital Course Hospital Course She was taken to the [facility], she was noted to have significant eccentric 70% distal left main, proximal high-grade 90% circumflex and ostial significant 80% OM2, LAD has diffuse luminal irregularities, diagonal 1 has 50% proximal stenosis, RCA is 100% occluded in the middle with [id number] collaterals. Left ventricular end-diastolic pressure was moderately elevated at 37 mmHg, left ventricular ejection fraction appeared to be normal 60% with inferior wall severe hypokinesis, there was no aortic valve gradient. Given history of multivessel coronary artery disease and because of the fact after giving nitroglycerin ST elevation and reciprocal EKG changes improved plus patient was hemodynamically stable we decided to refer patient for CABG. Dr. Adarsh Ross graciously accepted the patient for the transfer to [facility] for further evaluation and treatment. Physical Exam Narrative: General: No apparent distress, healthy appearing, well nourished HENMT: normoceophalic Muskuloskeletal: Full ROM Lymphatic: no lymphedema noted Respiratory: Normal respiratory effort, fine crakcles bilateral lower lobes, no use of accessory muscles Cardio: No JVD, regular rate, regular rhythm, S1 S2 normal, no murmurs, peripheral pulses 2+ throughout Extremities: Full ROM, normal, normal capillary refill, no cyanosis or edema Neuro: Alert and oriented x4, no focal motor deficits Psych: Affect normal, denies suicidal ideation, mental status grossly normal Skin: cath puncture site to right groin clean dry intact no s/s of hematoma Discharge Data Studies Completed and Pending Completed Studies During Hospitalization Category Date Time Status CTA chest [CT angio chest PE protcl [id number]] Stat Cat Scan 08/25/24 17:26 Completed [employer] request for service Stat Exams 08/25/24 18:05 Completed XR cervical spine 3V* [id number] Stat Exams 08/25/24 15:48 Completed XR chest 1V portable [id number] Urgent Exams 08/25/24 15:44 Completed XR thoracic spine 3V* [id number] Stat Exams 08/25/24 15:44 Completed CV. echo complete* [id number] Routine Ultrasound 08/25/24 20:23 Completed Radiology Impressions Chest X-Ray 08/25/24 15:44 IMPRESSION: Mild cardiomegaly. No acute chest abnormality. Thoracic Spine X-Ray 08/25/24 15:44 IMPRESSION: Mild to moderate degenerative spondylosis. Cervical Spine X-Ray 08/25/24 15:48 IMPRESSION: Mild changes of degenerative spondylosis as above. Bilateral calcified plaque carotid arteries. Chest CTA 08/25/24 17:26 IMPRESSION: 1. No evidence of pulmonary embolism. 2. No evidence of thoracic aortic aneurysm or dissection. 3. Stenosis of the left subclavian artery. Laboratory Results WBC 10.68 10^3/uL (3.29-11.43) 08/26/24 03:25 RBC 4.56 10^6/uL (3.85-5.65) 08/26/24 03:25 Hgb 14.60 g/dL (11.27-16.99) 08/26/24 03:25 Hct 44.1 % (36-47) 08/26/24 03:25 MCV 96.7 fl (85-98) 08/26/24 03:25 MCH 32.0 pg (27-33) 08/26/24 03:25 MCHC 33.1 g/dL (30-55) 08/26/24 03:25 RDW 13.8 % (12.1-15.1) 08/26/24 03:25 Plt Count 259 10^3/cmm (157-399) 08/26/24 03:25 MPV 10.5 fL (7.4-10.4) H 08/26/24 03:25 Neut % (Auto) 80.3 % 08/26/24 03:25 Lymph % (Auto) 12.1 % 08/26/24 03:25 [place] % (Auto) 7.0 % 08/26/24 03:25 Eos % (Auto) 0.0 % 08/26/24 03:25 Baso % (Auto) 0.3 % 08/26/24 03:25 Neut # (Auto) 8.58 10^3/uL (1.8-7.7) H 08/26/24 03:25 Lymph # (Auto) 1.3 10^3/uL (0.8-4.8) 08/26/24 03:25 [place] # (Auto) 0.8 10^3/uL (0.2-0.9) 08/26/24 03:25 Eos # (Auto) 0.0 10^3/uL (0.0-0.8) 08/26/24 03:25 Baso # (Auto) 0.0 10^3/uL (0.0-0.1) 08/26/24 03:25 Nucleated RBC % (auto) 0 % 08/26/24 03:25 Nucleated RBCs # 0.0 /100WBC 08/26/24 03:25 APTT 89.6 SECONDS (23.9-36.7) H D 08/26/24 14:28 Sodium 138 mmol/L (136-145) 08/26/24 03:25 Potassium 4.3 mmol/L (3.5-5.1) 08/26/24 03:25 Chloride 100 mmol/L (98-107) 08/26/24 03:25 Carbon Dioxide 25 mmol/L (22-29) 08/26/24 03:25 Anion Gap 17.3 (5-19) 08/26/24 03:25 BUN 14 mg/dL (8-23) 08/26/24 03:25 Creatinine 0.7 mg/dL (0.5-0.9) 08/26/24 03:25 GFR Calculation Not Reportable 08/26/24 03:25 Glucose 139 mg/dL (65-115) H 08/26/24 03:25 Calculated Osmolality 289 mOsm/kg (285-295) 08/26/24 03:25 Calcium 8.8 mg/dL (8.5-10.5) 08/26/24 03:25 Total Bilirubin 0.7 mg/dL (0.15-1.2) 08/25/24 16:53 AST 62 U/L (0-32) H 08/25/24 16:53 ALT 25 U/L (0-33) 08/25/24 16:53 Alkaline Phosphatase 80 U/L (35-105) 08/25/24 16:53 Troponin T Baseline 381 ng/L (0-10) H* 08/25/24 16:53 Troponin T 120 Minute 277.8 ng/L (0-10) H 08/25/24 19:32 Delta Troponin T -103.2 ABS# (0-10) L 08/25/24 19:32 Troponin T Hi Sens 6Hr 301.0 ng/L (0-10) H 08/25/24 21:06 Troponin T Hi Sens 6Hr Delta -80.0 ng/L (0-12) L 08/25/24 21:06 Total Protein 7.4 g/dL (6.6-8.7) 08/25/24 16:53 Albumin 4.6 g/dL (3.5-5.2) 08/25/24 16:53 Globulin 2.8 g/dL (1.3-4.6) 08/25/24 16:53 Procedures Performed Left heart catheterization Vitals Last Vital Signs Temp 97.8 F 08/26/24 18:30 Pulse 94 08/26/24 19:53 Resp 17 08/26/24 19:53 BP 125/77 08/26/24 19:53 Pulse Ox 91 08/26/24 19:53 O2 Del Method Room Air 08/26/24 06:00 Discharge Plan Discharge Patient Disposition: Other Inst w Plan Readm Condition: Stable Prescriptions: No Action No Known Home Medications Discharge Orders: Discharge Order (Routine); Ordered 10/24/24 Ordered By: Angelique Lechuga Discharge Diet: Cardiac, Low Salt and Low Cholesterol Discharge Activity: Increase activity as tolerated Patient Instructions: Opioid Safety Discharge Attestations Time Spent in Discharge Care*: less than 30 min Quality Metrics Clinical Quality Measures [ No reported AMI, CVA or VTE this stay] Coding Level of Care Code Acute Code for Chg Fwd Diagnoses Acute coronary syndrome I24.9 Essential hypertension I10 Hyperlipidemia LDL goal <70 E78.5
--- NOTE | 2024-08-26 19:15 | PC.NURSE ---
Report called to Maddi Schwartz RN at [facility] at 1730. Patient to go to CVICU room 3.
== END 2024-08-26 19:50 | disposition short-term general hospital (02) | DRG 282 ==
LOC: ER 18:20 → CCL 18:54 → ICU 19:45
PROVIDERS: Physician Assistant; Admitting Provider Internal Medicine Cardiovascular Disease; Emergency Provider Emergency Medicine; Visit Provider Internal Medicine Cardiovascular Disease
PROC: 4A023N7 Measurement of Cardiac Sampling and Pressure, Left Heart, Percutaneous Approach (ICD-10-PCS; principal; 2024-08-25 18:35)
DX: I21.19 ST elevation (STEMI) myocardial infarction involving other coronary artery of inferior wall (principal); I10 Essential (primary) hypertension; E78.5 Hyperlipidemia, unspecified; I25.10 Atherosclerotic heart disease of native coronary artery without angina pectoris; I24.9 Acute ischemic heart disease, unspecified
CPT/HCPCS: 36415; 71045; 71275; 72040; 72072; 80048; 80053; 84484; 85025; 85347; 85730; 93005; 93306; 93458; 96374; 96375; 96376; 99152; 99153; 99285; C1769; C1887; C1894; J0360; J1644; J1940; J2250; J2270; J3010; J3490; J7050; Q9967